=== PATIENT | female | born 1995 | race Two or more races ===

== ENCOUNTER 2017-01-10 20:02 | Emergency (ER) | payer SELFPAY ==
[~2017-01-10] VITALS: Ht 157.5 cm; Wt 64.9 kg
[2017-01-10 20:31] LABS: Urine Bilirubin Negative (Negative); Urine Blood Negative /uL (Negative); Urine Color Yellow (Yellow); Urine Glucose Normal (Normal); Urine Ketone Negative (Negative); Urine Mucus FEW (None Seen); Urine Nitrite Negative (Negative); Urine RBC 11 /hpf (0 - 4); Urine Squamous Epithelial Cell MOD /hpf (<5)
[2017-01-11 00:29] VITALS: BP 126/78
== END 2017-01-11 01:10 | disposition home or self-care (01) ==
LOC: ER 20:07
DX: S70.361A Insect bite (nonvenomous), right thigh, initial encounter (principal); N39.0 Urinary tract infection, site not specified; L03.115 Cellulitis of right lower limb; W57.XXXA Bitten or stung by nonvenomous insect and other nonvenomous arthropods, initial encounter; Y93.89 Activity, other specified; Y92.89 Other specified places as the place of occurrence of the external cause; Y99.8 Other external cause status
CPT/HCPCS: 81001; 81025